=== PATIENT | female | born 1980 | race Caucasian/White ===

== ENCOUNTER 2021-03-07 20:01 | Emergency (ER) | payer BC ==
[2021-03-07] MEDS ORDERED: Sodium Chloride 0.9% 1,000 ML IV ONE (20:25)
[2021-03-07] MEDS ORDERED: Ondansetron 4 MG/2 ML SDV IVPUSH ONE (20:29)
[2021-03-07] MEDS ORDERED: Ketorolac 30 MG/ML SDV IVPUSH ONE (20:29)
--- NOTE | 2021-03-07 20:35 | EDM.PDOC ---
ED HPI GENERAL MEDICAL PROBLEM - General Chief Complaint: Abdominal Pain Stated Complaint: ABDOMINAL PAIN Time Seen by Provider: 03/07/21 20:20 Source of Information: Reports: Patient History Limitations: Reports: No Limitations - History of Present Illness INITIAL COMMENTS - FREE TEXT/NARRATIVE: Patient states she has been having intermittent right lower quadrant pain the couple days it started Sunday but this morning is progressively gotten worse until it is now constant she rates pain about a 8 out of 10 points to the right lower quadrant. She describes it as a sharp stabbing pain. Last menstrual period was approximately 22 February. She has a history of tubal ligation No history of ovarian cyst She states she has had this pain twice before but it only lasted a few hours in the past and is several months ago. She has been nauseated all day but was able to eat chicken soup at lunch she denies any anorexia now She has no other complaints at this time Location: Reports: Abdomen Severity: Severe Improves with: Reports: Rest Worsens with: Reports: Movement Associated Symptoms: Reports: No Other Symptoms, Nausea/Vomiting. Denies: Confusion, Chest Pain, Fever/Chills, Headaches, Loss of Appetite Right Lower Abdomen Pain Score (Numeric/FACES): 8 - Related Data Allergies Allergy/AdvReac Type Severity Reaction Status Date / Time amoxicillin Allergy Rash Verified 03/07/21 20:38 drospirenone [From MELO (28)] Allergy Rash Verified 03/07/21 20:38 ethinyl estradiol Allergy Rash Verified 03/07/21 20:38 [From MELO (28)] Home Meds: Home Meds FLUoxetine HCl [Prozac] 20 mg PO DAILY 03/07/21 [History] ED ROS GENERAL - Review of Systems Review Of Systems: See Below Constitutional: Reports: No Symptoms. Denies: Fever, Chills, Malaise, Weakness, Fatigue HEENT: Reports: No Symptoms Respiratory: Reports: No Symptoms Cardiovascular: Reports: No Symptoms Endocrine: Reports: No Symptoms GI/Abdominal: Reports: Abdominal Pain, Nausea : Reports: No Symptoms. Denies: Discharge, Dysuria, Flank Pain, Urgency Musculoskeletal: Reports: Back Pain, Other (Pain to the right lower back) Skin: Reports: No Symptoms Neurological: Reports: No Symptoms Psychiatric: Reports: No Symptoms Hematologic/Lymphatic: Reports: No Symptoms Immunologic: Reports: No Symptoms ED EXAM, GI/ABD - Physical Exam Exam: See Below Exam Limited By: No Limitations General Appearance: Alert, WD/WN, Other (Mild discomfort noted) Eyes: Bilateral: Normal Appearance Nose: Normal Inspection Throat/Mouth: Normal Inspection, Normal Lips, Normal Teeth, Normal Gums, Normal Oropharynx, Normal Voice, No Airway Compromise Head: Atraumatic, Normocephalic Neck: Normal Inspection, Supple, Non-Tender, Full Range of Motion Respiratory/Chest: No Respiratory Distress, Lungs Clear, Normal Breath Sounds, No Accessory Muscle Use, Chest Non-Tender Cardiovascular: Normal Peripheral Pulses, Regular Rate, Rhythm, No Edema, No Gallop, No JVD, No Murmur, No Rub GI/Abdominal Exam: Normal Bowel Sounds, Soft, No Organomegaly, No Distention, No Abnormal Bruit, No Mass, Pelvis Stable, Rebound, Tender, Other (Positive psoas positive obturator negative heel slap negative pelvic rock positive McBurney's tenderness to palpation neg CVA blat ). No: Non-Tender, Guarding, Rigid, Abnormal Bowel Sounds Back Exam: Full Range of Motion Extremities: Normal Inspection, Normal Range of Motion, Non-Tender, No Pedal Ed anabel, Normal Capillary Refill Neurological: Alert, Oriented, CN II-XII Intact, Normal Cognition, Normal Gait, Normal Reflexes, No Motor/Sensory Deficits Psychiatric: Normal Affect, Normal Mood Skin Exam: Warm, Dry, Intact, Normal Color, No Rash Course - Vital Signs Text/Narrative:: CBC BMP UA urine hCG Toradol 30 mg IV Zofran 4 mg IV Dilaudid half milligram IV CBC BMP within normal limits secondary to the patient's presentation will CT abdomen pelvis with IV contrast rule out appendicitis Positive appendicitis Venancio was called at 1030 patient was rechecked states she feels a lot better Spoke with Dr. AGUILAR will accept the patient through the ER at the main campus go ahead and start Zosyn IV Secondary to the patient's history of allergies to amoxicillin will change to Invanz 1 g IV Patient has been wished to go POV Not go via EMS she is willing to sign for POV transfer All vital signs are stable and noted Last Recorded V/S: Last Vital Signs Temp 38.4 C H 03/07/21 20:01 Pulse 71 03/07/21 20:01 Resp 16 03/07/21 20:01 BP 139/80 03/07/21 20:01 Pulse Ox 99 03/07/21 20:01 - Orders/Labs/Meds Orders: Active Orders 24 hr Category Date Time Status Abdomen Pelvis w Cont [CT] Stat Exams 03/07/21 21:32 Taken Labs: Laboratory Tests 03/07/21 03/07/21 03/07/21 Range/Units 20:20 20:20 21:02 WBC 11.8 H (4.0-10.0) x10^3/uL RBC 4.04 (4.00-5.50) x10^6/uL Hgb 12.7 (12.0-16.0) g/dL Hct 37.1 (33.0-47.0) % MCV 91.8 (78.0-93.0) fL MCH 31.4 (26.0-32.0) pg MCHC 34.2 (32.0-36.0) g/dL RDW Coeff of Sridevi 12.3 (10.0-15.0) % Plt Count 206 (130-400) x10^3/uL Neut % (Auto) 87.9 H (50.0-80.0) % Lymph % (Auto) 5.5 L (25.0-50.0) % Refugio % (Auto) 6.5 (2.0-11.0) % Eos % (Auto) 0.1 (0.0-4.0) % Baso % (Auto) 0.0 L (0.2-1.2) % Sodium 137 (136-145) mmol/L Potassium 3.8 (3.5-5.1) mmol/L Chloride 102 (98-107) mmol/L Carbon Dioxide 23 (21-32) mmol/L Anion Gap 15.8 H (5-15) mmol/L BUN 10 (7-18) mg/dL Creatinine 0.7 (0.55-1.02) mg/dL Est Cr Clr Drug Dosing 98.05 mL/min Estimated GFR (MDRD) > 60 Glucose 112 H (70-99) mg/dL Calcium 8.8 (8.5-10.1) mg/dL Urine HCG, Qual Negative (NEGATIVE) Meds: Medications Discontinued Medications Generic Name Dose Route Start Last Admin Trade Name Freq PRN Reason Stop Dose Admin Ertapenem 1 gm 03/07/21 22:38 Ertapenem 1 Gm Vial IVPUSH 03/07/21 22:39 STAT ONE Hydromorphone HCl 1 mg 03/07/21 21:11 03/07/21 21:20 Hydromorphone 1 Mg/Ml Syringe IVPUSH 03/07/21 21:12 0.5 mg ONETIME ONE Administration Sodium Chloride 1,000 mls @ 999 mls/hr 03/07/21 20:25 03/07/21 20:25 Normal Saline IV 03/07/21 21:25 999 mls/hr ONETIME ONE Administration Iopamidol 100 ml 03/07/21 22:16 03/07/21 22:19 Iopamidol 612 Mg/Ml 100 Ml Bottle IVPUSH 03/07/21 22:17 100 ml ONETIME ONE Administration Iopamidol 15 ml 03/07/21 22:30 Iopamidol 612 Mg/Ml 50 Ml Sdv PO 03/07/21 23:01 Q30M ANGELES Ketorolac Tromethamine 30 mg 03/07/21 20:29 03/07/21 20:45 Ketorolac 30 Mg/Ml Sdv IVPUSH 03/07/21 20:30 30 mg ONETIME ONE Administration Ondansetron HCl 4 mg 03/07/21 20:29 03/07/21 20:44 Ondansetron 4 Mg/2 Ml Sdv IVPUSH 03/07/21 20:30 4 mg ONETIME ONE Administration Departure - Departure Time of Disposition: 22:40 Disposition: DC/Tfer to Acute Hospital 02 Condition: Good Clinical Impression: Appendicitis - Discharge Information *PRESCRIPTION DRUG MONITORING PROGRAM REVIEWED*: No *COPY OF PRESCRIPTION DRUG MONITORING REPORT IN PATIENT FIDELINA: No Instructions: Appendicitis, Adult Referrals: Izabella Moya MD [Primary Care Provider] - Forms: ED Department Discharge, Interfacility Transfer EMTALA Additional Instructions: Go directly to [place] [facility] you will be admitted and see the surgeon Dr. Aguilar Do not go anywhere else go directly to the emergency room do not eat or drink anything until after you see the surgeon. If anything changes or gets worse go to the nearest emergency facility or return here Sepsis Event Note (ED) - Focused Exam Vital Signs: Vital Signs Temp Pulse Resp BP Pulse Ox 03/07/21 20:01 38.4 C H 71 16 139/80 99 - Problem List & Annotations (1) Appendicitis SNOMED Code(s): 13829121 Code(s): K37 - UNSPECIFIED APPENDICITIS Status: Acute Current Visit: Yes - My Orders Last 24 Hours: My Active Orders 03/07/21 21:32 Abdomen Pelvis w Cont [CT] Stat - Assessment/Plan Last 24 Hours: My Active Orders 03/07/21 21:32 Abdomen Pelvis w Cont [CT] Stat
[2021-03-07 20:53] LABS: ANION GAP 15.8 mmol/L (5-15); CHLORIDE,CL 102 mmol/L (98-107); SODIUM,NA 137 mmol/L (136-145)
[2021-03-07] MEDS ORDERED: HYDROmorphone 1 MG/ML Syringe IVPUSH ONE (21:11)
[2021-03-07] MEDS ORDERED: Iopamidol 612 MG/ML 100 ML Bottle IVPUSH ONE (22:16)
[2021-03-07] MEDS ORDERED: Iopamidol 612 MG/ML 50 ML SDV PO SCH (22:30)
[2021-03-07] MEDS ORDERED: Ertapenem 1 GM Vial IVPUSH ONE (22:38)
[2021-03-07] MEDS ORDERED: HYDROmorphone 0.5 MG/0.5 ML Syringe IV ONE (23:01)
--- NOTE | 2021-03-08 08:36 | CT ---
[id number] CT/CT Abdomen Pelvis W IV EXAM: CT Abdomen Pelvis W IV CLINICAL DATA: RIGHT LOWER QUADRANT PAIN COMPARISON: No previous similar exam is available. FINDINGS: The appendix is dilated There is periappendiceal stranding There is an appendicolith The liver and spleen, kidneys and adrenals, pancreas and aorta are unremarkable The uterus is prominent The pelvis otherwise shows no mass or adenopathy IMPRESSION: ACUTE APPENDICITIS REPORT CALLED AT TIME OF EXAM Steve Edwards MD 03/08/21 0835 Thank you for allowing us to participate in the care of your patient.
== END 2021-03-07 23:13 | disposition short-term general hospital (02) ==
LOC: VM.ED 20:01
DX: K37 Unspecified appendicitis (principal); Z88.0 Allergy status to penicillin; Z88.8 Allergy status to other drugs, medicaments and biological substances
CPT/HCPCS: 74177; 80048; 81025; 85025; 96374; 96375; 96376; 99284; 99285; J1170; J1335; J1885; J2405; J7030; Q9967